=== PATIENT | female | born 2000 | race Two or more races ===

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

== ENCOUNTER 2019-04-19 12:17 | Emergency (ER) | payer MEDICAID ==
[~2019-04-19] VITALS: Ht 157.5 cm; Wt 85.7 kg
[~2019-04-19 12:17] MED LIST changes: +ALBUTEROL SULF8.5 GM INH; +PROMETH-CODEIN 65 ML PO; +PROMETHAZINE HC25 MG RC
[2019-04-19 12:38] VITALS: BP 140/85
--- NOTE | 2019-04-19 12:38 | NUR ---
ED Nurse Note: Pt walked in from home c/o right lower quadrant abdominal pain and nausea since this morning. Pt denies vomiting/diarrhea. Respirations even and unlabored on room air. Vitals stable as documented.
--- NOTE | 2019-04-19 12:41 | Emergency Room Report ---
History of Present Illness General Chief Complaint: Abdominal Pain Source: Patient Present Illness HPI 18-year-old female presents to the emergency department complaining of 10 out of 10 severity right lower quadrant abdominal pain with radiation towards her back with associated nausea since last night. Patient denies vomiting, fevers, chills, constipation or diarrhea. Reports she still has an appendix. She also describes low suspicion for however she states she has Implanon implant that broke in half approximately 1 year ago. He denies dysuria, hematuria, urinary frequency or urgency. She reports tenderness to the right lower quadrant of the abdomen. She denies changes with eating or drinking. No other aggravating or relieving factors at this time. Denies vaginal pain or d/ c. Denies hx of ovarian cysts. She denies vaginal d/c or hx of STI. Denies rashes. Allergies: Coded Allergies: No Known Allergies (Unverified , 12/19/13) Patient History Past Medical History: see triage record Past Surgical History: none Pertinent Family History: none Now: No Immunizations: UTD Reviewed Nursing Documentation: PMH: Agreed; PSxH: Agreed Review of Systems All Other Systems: negative except mentioned in HPI Physical Exam Vital Signs Date Time Temp Pulse Resp B/P (MAP) Pulse Ox O2 Delivery O2 Flow Rate FiO2 04/19/19 12:26 98.1 77 18 140/85 (103) 99 Room Air Sp02 EP Interpretation: reviewed, normal General Appearance: no apparent distress, alert, GCS 15, non-toxic Head: normocephalic, atraumatic Eyes: bilateral eye normal inspection, bilateral eye PERRL ENT: hearing grossly normal, normal voice Neck: full range of motion Respiratory: lungs clear, normal breath sounds, speaking full sentences Cardiovascular #1: regular rate, rhythm Gastrointestinal: normal bowel sounds, soft, non-distended, no guarding, tenderness - RLQ, no appreciable adnexal TTP Rectal: deferred Genitourinary: normal inspection, no CVA tenderness, adnexa normal - no appreciable Adnexal ttp. Musculoskeletal: back normal, normal range of motion, gait/station normal, non- tender Neurologic: alert, motor strength/tone normal, oriented x3, sensory intact, responsive, speech normal Psychiatric: judgement/insight normal Skin: no rash, normal color Lymphatic: no adenopathy Medical Decision Making PA Attestation Dr. Hamilton Is my supervising Physician whom patient management has been discussed with. Diagnostic Impression: Primary Impression: Ovarian cyst Qualified Codes: N83.201 - Unspecified ovarian cyst, right side ER Course 18-year-old female presents to the emergency department complaining of 10 out of 10 severity right lower quadrant abdominal pain with radiation towards her back with associated nausea since last night. Patient denies vomiting, fevers, chills, constipation or diarrhea. Reports she still has an appendix. She also describes low suspicion for however she states she has Implanon implant that broke in half approximately 1 year ago. He denies dysuria, hematuria, urinary frequency or urgency. She reports tenderness to the right lower quadrant of the abdomen. She denies changes with eating or drinking. No other aggravating or relieving factors at this time. Denies vaginal pain or d/ c. Denies hx of ovarian cysts. She denies vaginal d/c or hx of STI. Denies rashes. Ddx considered but are not limited to Diverticulitis, acute appendicitis, diarrhea,UC, PUD, GE, pancreatitis, gallstone, ovarian torsion,ovarian cyst, ectopic , PID tubo-ovarian abscess. Vital signs: are WNL, pt. is afebrile. H&PE are most consistent with RLQ and adnexal TTP need to r/o appendicitis or torsion. ORDERS: -CBC, CMP, LIPASE: WNL -UA: WNL -URINE HCG: Negative - CT Abdomen and Pelvis with Contrast: normal appendix, ovarian cyst noted, radiology requested US eval- -US Pelvis: 9-11cm Right ovarian Cyst. ED INTERVENTIONS: - 1 Liter NS - Toradol 15mg IV -5mg [place] PO I discussed the imaging findings with this patient regarding the large ovarian cyst and requiring urgent gynecological follow-up. DISCHARGE: At this time pt. is stable for d/c to home. Will provide printed patient care instructions, and any necessary prescriptions. Care plan and follow up instructions have been discussed with the patient prior to discharge. Labs Test 04/19/19 12:35 04/19/19 12:50 Urine Color Yellow Urine Appearance Cloudy Urine pH 8 (4.5-8.0) Urine Specific [place] 1.010 (1.005-1.035) Urine Protein Negative (NEGATIVE) Urine Glucose (UA) Negative (NEGATIVE) Urine Ketones 4+ (NEGATIVE) Urine Blood Negative (NEGATIVE) Urine Nitrite Negative (NEGATIVE) Urine Bilirubin Negative (NEGATIVE) Urine Urobilinogen 1 MG/DL (0.0-1.0) Urine Leukocyte Esterase 1+ (NEGATIVE) Urine RBC 0-2 /HPF (0 - 2) Urine WBC 0-2 /HPF (0 - 2) Urine Squamous Epithelial Cells Few /LPF (NONE/OCC) Urine Amorphous Sediment Few /LPF (NONE) Urine Bacteria Few /HPF (NONE) Urine HCG, Qualitative Negative (NEGATIVE) White Blood Count 8.7 K/UL (4.8-10.8) Red Blood Count 4.37 M/UL (4.20-5.40) Hemoglobin 13.6 G/DL (12.0-16.0) Hematocrit 39.4 % (37.0-47.0) Mean Corpuscular Volume 90 FL (80-99) Mean Corpuscular Hemoglobin 31.2 PG (27.0-31.0) Mean Corpuscular Hemoglobin Concent 34.6 G/DL (32.0-36.0) Red Cell Distribution Width 11.3 % (11.6-14.8) Platelet Count 184 K/UL (150-450) Mean Platelet Volume 7.5 FL (6.5-10.1) Neutrophils (%) (Auto) 80.9 % (45.0-75.0) Lymphocytes (%) (Auto) 14.2 % (20.0-45.0) Monocytes (%) (Auto) 4.2 % (1.0-10.0) Eosinophils (%) (Auto) 0.2 % (0.0-3.0) Basophils (%) (Auto) 0.6 % (0.0-2.0) Sodium Level 140 MMOL/L (136-145) Potassium Level 3.6 MMOL/L (3.5-5.1) Chloride Level 106 MMOL/L (98-107) Carbon Dioxide Level 26 MMOL/L (21-32) Anion Gap 8 mmol/L (5-15) Blood Urea Nitrogen 11 mg/dL (7-18) Creatinine 0.6 MG/DL (0.55-1.30) Estimat Glomerular Filtration Rate > 60 mL/min (>60) Glucose Level 94 MG/DL (74-106) Calcium Level 8.9 MG/DL (8.5-10.1) Total Bilirubin 0.9 MG/DL (0.2-1.0) Aspartate Amino Transf (AST/SGOT) 15 U/L (15-37) Alanine Aminotransferase (ALT/SGPT) 26 U/L (12-78) Alkaline Phosphatase 66 U/L (46-116) Total Protein 7.1 G/DL (6.4-8.2) Albumin 4.0 G/DL (3.4-5.0) Globulin 3.1 g/dL Albumin/Globulin Ratio 1.3 (1.0-2.7) Lipase 111 U/L (73-393) CT/MRI/US Diagnostic Results CT/MRI/US Diagnostic Results #1: Imaging Test Ordered: CT Abdomen and Pelvis with Contrast Impression "Complex septated right ovarian cyst. Minimal adjacent inflammation also noted. Possibly hemorrhagic cyst. No specific features to suggest ovarian torsion although the adjacent inflammation does raise concerns for such. Consider sonography for better characterization. Prominent paraovarian veins, raises possibility of pelvic congestion from ovarian vein insufficiency. Normal appendix." Per official radiology report- Please see report for specific details. CT/MRI/US Diagnostic Results #2: Imaging Test Ordered: Pelvic US Impression " No torsion noted, however did note to have 9-11 cm right ovarian cyst. " Per official radiology report- Please see report for specific details. Last Vital Signs Date Time Temp Pulse Resp B/P (MAP) Pulse Ox O2 Delivery O2 Flow Rate FiO2 04/19/19 12:38 98.1 77 18 140/85 99 Room Air Disposition: HOME, SELF-CARE Condition: Stable Scripts Acetaminophen With Codeine (T#3) (TYLENOL #3 TAB*) Y Tab 1 TAB ORAL Q6H PRN for For Pain, #6 TAB Prov: Miladys Mcconnell 04/19/19 Ibuprofen* (MOTRIN*) 600 Mg Tablet 600 MG ORAL THREE TIMES A DAY, #30 TAB 0 Refills Prov: Miladys Mcconnell 04/19/19 Patient Instructions: Ovarian Cyst Additional Instructions: Take medications as directed. Follow up with a BARRATTE OPERATOR within 3 days, even if your symptoms have resolved. 9cm ovarian Cyst on the right ovary. Return sooner to ED if new symptoms occur, or current symptoms become worse. - Please note that this Emergency Department Report was dictated using [employer] hardener technology software, occasionally this can lead to erroneous entry secondary to interpretation by the dictation equipment. Miladys Mcconnell Apr 19, 2019 12:41
[2019-04-19 12:59] LABS: BILIRUBIN, URINE NEGATIVE (NEGATIVE); GLUCOSE, URINE (UA) NEGATIVE (NEGATIVE); KETONES,URINE 4+ (NEGATIVE); LEUKOCYTE ESTERASE ,URINE 1+ (NEGATIVE); NITRITE,URINE NEGATIVE (NEGATIVE); PH,URINE 8 (4.5-8.0); PROTEIN,URINE NEGATIVE (NEGATIVE); UROBILINOGEN,URINE 1 MG/DL (0.0-1.0)
[2019-04-19 13:11] LABS: BASOPHILS % (AUTO) 0.6 % (0.0-2.0); EOSINOPHILS % (AUTO) 0.2 % (0.0-3.0); HEMATOCRIT 39.4 % (37.0-47.0); HEMOGLOBIN 13.6 G/DL (12.0-16.0); LYMPHOCYTES % (AUTO) 14.2 % (20.0-45.0); MEAN CORPUSCULAR VOLUME 90 FL (80-99); MONOCYTES % (AUTO) 4.2 % (1.0-10.0); NEUTROPHILS % (AUTO) 80.9 % (45.0-75.0); PLATELET COUNT 184 K/UL (150-450); RED BLOOD COUNT 4.37 M/UL (4.20-5.40); RED CELL DISTRIBUTION WIDTH 11.3 % (11.6-14.8); WHITE BLOOD COUNT 8.7 K/UL (4.8-10.8)
[2019-04-19 13:13] LABS: APPEARANCE,URINE CLOUDY; COLOR,URINE YELLOW
[2019-04-19] MEDS ORDERED: Omnipaque-300 100ml vial INJ PRN (13:15)
[2019-04-19] MEDS ORDERED: Ketorolac 30mg Inj IV ONE (13:15)
[2019-04-19 13:33] LABS: ANION GAP 8 mmol/L (5-15); BLOOD UREA NITROGEN 11 mg/dL (7-18); CALCIUM 8.9 MG/DL (8.5-10.1); CARBON DIOXIDE 26 MMOL/L (21-32); CHLORIDE 106 MMOL/L (98-107); CREATININE 0.6 MG/DL (0.55-1.30); POTASSIUM 3.6 MMOL/L (3.5-5.1); SODIUM 140 MMOL/L (136-145)
[2019-04-19 13:38] LABS: ALANINE AMINOTRANSFERASE 26 U/L (12-78); ALBUMIN/GLOBULIN RATIO 1.3 (1.0-2.7); ALKALINE PHOSPHATASE 66 U/L (46-116); ASPARTATE AMINO TRANSFERASE 15 U/L (15-37); BILIRUBIN,TOTAL 0.9 MG/DL (0.2-1.0)
--- NOTE | 2019-04-19 13:50 | NUR ---
ED Nurse Note: Pt in CT
--- NOTE | 2019-04-19 15:11 | Diagnostic Imaging Report ---
Clinical Indication: Right lower quadrant pain, nausea, vomiting, diarrhea Technique: No oral contrast utilized, per emergency room physician request IV administration nonionic contrast. Venous phase spiral acquisition obtained through the abdomen and pelvis. Multiplanar reconstructions were generated. Total dose length product 44 mGycm. CTDIvol(s) 8 mGy. Dose reduction achieved using automated exposure control Comparison: none Findings: The right ovary contains a large thin-walled septated complex cystic mass which measures 5.7 x 4.5 cm. The ovarian vascular pedicle is not well-demonstrated. The left ovary appears unremarkable. There is some stranding of the right lower quadrant fat noted. Mildly enlarged bilateral right greater than left paraovarian veins are demonstrated. The ovarian veins are mildly prominent bilaterally. The appendix is normal, contains gas. The colon is unremarkable, no evidence of diverticulosis or diverticulitis. A few prominent but not frankly distended small bowel loops are seen in the left upper quadrant. No free or loculated intraperitoneal gas or fluid is evident. The distal esophagus, stomach, duodenum are unremarkable. The liver, gallbladder, bile ducts, pancreas, spleen, adrenals, kidneys are unremarkable. No renal or ureteral calculi, hydronephrosis, nor hydroureter. The included lung bases demonstrate a calcified granuloma on the right. There is also a calcified granuloma on the left. The bones are unremarkable. Impression: Complex septated right ovarian cyst. Minimal adjacent inflammation also noted. Possibly a hemorrhagic cyst. No specific features to suggest ovarian torsion although the adjacent inflammation does raise concern for such. 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 Hamilton in the emergency room at the time of interpretation The CT scanner at [facility] is accredited by the [employer] and the scans are performed using protocols designed to limit radiation exposure to as low as reasonably achievable to attain images of sufficient resolution adequate for diagnostic evaluation.
[2019-04-19] MEDS ORDERED: HYDROcodone/Acetamin 5/325 tab ORAL ONE (15:15)
--- NOTE | 2019-04-19 15:33 | NUR ---
ED Nurse Note: Pt in US
[2019-04-19] MEDS ORDERED: ACETAMINOPHEN-1 EAC1 ORAL (17:03)
[2019-04-19] MEDS ORDERED: IBUPROFEN600 MG ORAL (17:03)
[2019-04-19 17:12] VITALS: BP 138/78
--- NOTE | 2019-04-19 17:12 | NUR ---
ER DISCHARGE NOTE: Patient is cleared to be discharged per ERMD, pt is aox4, on room air, with stable vital signs as documented. pt was given dc and prescription instructions and was able to verbalize understanding. pt id band and IV removed. pt is able to ambulate with steady gait. pt took all belongings.
--- NOTE | 2019-04-19 17:13 | Diagnostic Imaging Report ---
Indication: Pelvic pain, abnormal CT scan Technique: Transabdominal and transvaginal images of the pelvis. Doppler interrogation of the ovaries Comparison: Reference made to CT scan performed earlier the same day Findings: There is a complex right adnexal cystic mass. The largest locule measures 11 cm in diameter, is in retrospect visible on prior CT scan, previously mistaken for bladder. The smaller component measures 5.8 cm, demonstrates more extensive septations. No wall thickening. Normal ovarian blood flow is demonstrated bilaterally. Left ovary cannot be visualized, appears unremarkable on recent CT The uterus measures 11.7 cm length by 4.5 cm AP. The endometrium is thickened, measuring 2.3 cm thick. No myometrial abnormality. There is questionably a small amount of free fluid Impression: Large complex septated right adnexal cystic mass, measuring over 11 cm in diameter. No specific features to suggest hemorrhage or torsion Nonvisualized right ovary Equivocal minimal free fluid
== END 2019-04-19 17:13 | disposition home or self-care (01) ==
LOC: EMR 13:50
DX: N83.201 Unspecified ovarian cyst, right side (principal)
CPT/HCPCS: 36415; 74177; 76830; 76856; 80053; 81003; 81025; 83690; 85025; 96361; 96374; J1885; J7030; Q9967; Z7502; 99284